=== PATIENT | male | born 1985 | race Caucasian/White ===

== ENCOUNTER 2024-06-21 11:10 | Emergency (ER) | payer OTHER ==
[2024-06-21] MEDS ORDERED: IBUPROFEN 400 MG TAB ONE (11:34)
[2024-06-21] MEDS ORDERED: LIDOCAINE 2% MPF 5 ML VIAL ONE ×2 (11:35→12:24)
[2024-06-21] MEDS ORDERED: HYDROCODONE/APAP 7.5/325 MG TAB ONE (11:35)
[2024-06-21] MEDS ORDERED: TDAP (DIPHTH,PERTUSS(ACELL),TET VAC) 0.5 ML VIAL IMVAC ONE (11:35)
--- NOTE | 2024-06-21 12:03 | RAD REPORT ---
EXAM DESCRIPTION: RAD - Foot Right 3 View - 06/21/2024 11:57 am CLINICAL HISTORY: laceration COMPARISON: <Comparisons> FINDINGS: No fracture, dislocation or soft tissue gas. Tiny linear radiopaque foreign body is seen a long the plantar forefoot tissues. Small calcaneal spur.
--- NOTE | 2024-06-21 12:56 | EDPHYS ---
Physician Documentation [facility] Name: Roberto Sims Age: 39 yrs Sex: Male : 1985 Arrival Date: 06/21/2024 Time: 11:10 Bed 7 Private MD: ED Physician Goldy Ruiz HPI: 06/21 11:30 This 39 yrs old Male presents to ER via Ambulatory with complaints of Fall Injury, cp Laceration To Leg. 11:30 The patient presents with an injury, a laceration. The complaints affect the right cp foot. Context: slipped in water on rocks while fishing [place]. Associated signs and symptoms: Pertinent positives: lacerations to left lower leg. Historical: - Allergies: 11:22 No Known Allergies; ll1 - PMHx: 11:22 None; ll1 - PSHx: 11:22 L hand and nasal surgery; ll1 - Immunization history:: Adult Immunizations up to date, Last tetanus immunization: unknown. - Social history:: Smoking status: Patient reports the use of cigarette tobacco products, smokes one-half pack cigarettes per day. ROS: 11:35 Constitutional: Negative for body aches, chills, fever, cp 11:35 Respiratory: Negative for cough, shortness of breath, wheezing, 11:35 Abdomen/GI: Negative for abdominal pain, vomiting, diarrhea, constipation, 11:35 Back: Negative for pain at rest, pain with movement, 11:35 MS/extremity: Positive for laceration, pain, of the right foot and left lower leg, 11:35 Neuro: Negative for altered mental status, dizziness, headache, weakness, 11:35 All other systems are negative, Exam: 11:40 Constitutional: The patient appears in no acute distress, alert, awake, non-toxic, well cp developed, well nourished, uncomfortable, 11:40 Head/Face: Normocephalic, atraumatic. cp 11:40 Eyes: Periorbital structures: appear normal, Conjunctiva: normal, no exudate, no cp injection, Lids and lashes: appear normal, bilaterally, 11:40 ENT: External ear(s): are unremarkable, Nose: is normal, Mouth: Lips: moist, Oral mucosa: moist, Posterior pharynx: Airway: no evidence of obstruction, patent, 11:40 Chest/axilla: Inspection: normal, 11:40 Cardiovascular: Rate: normal, 11:40 Respiratory: the patient does not display signs of respiratory distress, Respirations: normal, no use of accessory muscles, no retractions, 11:40 Back: pain, is absent, 11:40 Musculoskeletal/extremity: Extremities: grossly normal except: noted in the plantar side of right great toe: laceration, noted in the anterior left lower leg: laceration, ROM: full active range of motion, in the right foot and left knee, Perfusion: the extremity is normally perfused throughout, the right foot and left leg Sensation intact. 11:40 Neuro: Orientation: to person, place \T\ time. Mentation: is normal, Motor: moves all cp fours, Sensation: is normal, Vital Signs: 11:21 BP 144 / 108; Pulse 91; Resp 16; Temp 97.1; Pulse Ox 96% ; Weight 113.4 kg; Height 6 ll1 ft. 0 in. ; Pain 0/10; 12:20 BP 135 / 73; Pulse 84; Resp 18 S; Pulse Ox 98% ; aa5 11:21 Body Mass Index 33.91 (113.40 kg, 182.88 cm) ll1 11:21 Pain Scale: Adult ll1 Laceration: 12:55 Wound Repair of 3cm ( 1.2in ) subcutaneous laceration to plantar side of right great cp toe. Linear shaped.. Distal neuro/vascular/tendon intact. Anesthesia: Wound infiltrated with 5 mls of 2% lidocaine. Wound prep: Moderate cleansing by me, Wound irrigation by me. Skin closed with 1 3-0 Prolene using loose closure. Dressed with Bacitracin, 4x4's. Patient tolerated well. MDM: 11:16 Patient medically screened. cp 11:30 Differential diagnosis: fracture, foreign body, cellulitis. cp 12:55 Data reviewed: vital signs, nurses notes, radiologic studies, plain films, and as a cp result, I will discharge patient. 12:55 I considered the following discharge prescriptions or medication management in the emergency department Medications were administered in the Emergency Department. See MAR. Counseling: I had a detailed discussion with the patient and/or guardian regarding the historical points, exam findings, and any diagnostic results supporting the discharge/admit diagnosis, radiology results, the need for outpatient follow up, a general surgeon, to return to the emergency department if symptoms worsen or persist or if there are any questions or concerns that arise at home. Response to treatment: the patient's symptoms have markedly improved after treatment, and as a result, I will discharge patient. 06/21 11:25 Order name: XRAY Foot RIGHT 3 View; Complete Time: 12:50 cp 06/21 12:50 Order name: Wound dressing; Complete Time: 13:19 cp 06/21 12:57 Order name: Crutches; Complete Time: 13:40 cp 06/21 12:57 Order name: Post-op shoe; Complete Time: 13:40 cp Administered Medications: 11:41 Drug: Boostrix Tdap IM 0.5 ml IM once; as a single dose Route: IM; Site: right deltoid; aa5 12:20 Follow up: Response: No adverse reaction aa5 11:41 Drug: Ibuprofen PO 800 mg PO once Route: PO; aa5 12:20 Follow up: Response: No adverse reaction aa5 11:41 Drug: Hydrocodone-Acetaminophen PO (7.5 mg-325 mg) 1 tabs PO once; RASS on ADMIN: aa5 Combtv4, Very Agttd3, Agttd2, Rstlss1, AlertClm0, Drwsy-1, Lt Sdtn-2, Mod Sdtn-3, Dp Sdtn-4, UnArsble-5 Route: PO; 12:20 Follow up: Response: No adverse reaction aa5 12:45 Drug: Lidocaine Infiltration (2 %) 10 ml 5 ml Infiltration once; to bedside {Note: to aa5 right foot, administered by PA for laceration repair. .} Volume: 5 ml; Route: Infiltration; 13:00 Follow up: Response: No adverse reaction aa5 13:30 Drug: Doxycycline PO 200 mg PO once Route: PO; aa5 13:40 Follow up: Response: No adverse reaction; Medication administered at discharge. aa5 13:30 Drug: Ciprofloxacin PO 500 mg PO once Route: PO; aa5 13:40 Follow up: Response: No adverse reaction; Medication administered at discharge. aa5 Disposition Summary: 06/21/24 12:55 Discharge Ordered Notes: Location: Home cp Problem: new cp Symptoms: have improved cp Condition: Stable cp Diagnosis - Foot Laceration/ Open wound of foot - right cp Followup: cp - With: Pollo Cooper MD - When: 2 - 3 days - Reason: Wound Recheck Discharge Instructions: - Discharge Summary Sheet cp - Laceration Care, Adult cp - Nonsutured Laceration Care cp Forms: - Medication Reconciliation Form cp - Antibiotic Education cp - Prescription Opioid Use cp - Patient Portal Instructions cp - Leadership Thank You Letter cp Prescriptions: - Anaprox DS 550 mg Oral Tablet - take 1 tablet ORAL route every 12 hours As needed; 20 tablet; Refills: 0, cp Product Selection Permitted - Cipro 500 mg Oral tablet - take 1 tablet ORAL route every 12 hours for 10 days; 20 tablet; Refills: 0, cp Product Selection Permitted - Doxycycline Monohydrate 100 mg Oral Tablet - take 1 tablet ORAL route every 12 hours for 10 days; 20 tablet; Refills: 0, cp Product Selection Permitted Addendum: 07/02/2024 04:41 Co-signature as Attending Physician, Goldy Ruiz MD I agree with the assessment and c thayer plan of care. Signatures: Dispatcher [employer] EDGoldy Nieto MD MD cha Calderon, Audri, RN RN aa5 Goldy Nicolas PA PA Edison Lowe RN RN ll1 Corrections: (The following items were deleted from the chart) 06/22 12:34 12:30 MS/extremity: Positive for laceration, pain, of the right foot and left lower cp leg, cp 12:34 12:30 Constitutional: Negative for body aches, chills, fever, cp cp 12:34 12:30 Respiratory: Negative for cough, shortness of breath, wheezing, cp cp 12:34 12:30 Abdomen/GI: Negative for abdominal pain, vomiting, diarrhea, constipation, cp cp 12:34 12:30 Back: Negative for pain at rest, pain with movement, cp cp 12:34 12:30 Neuro: Negative for altered mental status, dizziness, headache, weakness, cp cp 12:34 12:30 All other systems are negative, cp cp 12:51 06/21 12:35 Wound Repair of 3cm ( 1.2in ) subcutaneous laceration to plantar side of cp right great toe. Linear shaped.. Distal neuro/vascular/tendon intact. Anesthesia: Wound infiltrated with 5 mls of 2% lidocaine. Wound prep: Moderate cleansing by me, Wound irrigation by me. Skin closed with 1 3-0 Prolene using loose closure. Dressed with Bacitracin, 4x4's. Patient tolerated well. cp
--- NOTE | 2024-06-21 12:56 | ER ---
Nurse's Notes [facility] Name: Roberto Sims Age: 39 yrs Sex: Male : 1985 Arrival Date: 06/21/2024 Time: 11:10 Bed 7 Private MD: Diagnosis: Foot Laceration/ Open wound of foot-right Presentation: 06/21 11:21 Chief complaint: Patient states: Slipped while [place] 20 min [employer]. Abrasions ll1 to L knee and R foot area. Minor abrasions B hands. No active bleeding. Needs tetanus. Coronavirus screen: Client denies travel out of the [place] in the last 14 days. At this time, the client does not indicate any symptoms associated with coronavirus-19. Ebola Screen: Patient denies travel to an Ebola-affected area in the 21 days before illness onset. Initial Sepsis Screen: Does the patient meet any 2 criteria? No. Patient's initial sepsis screen is negative. Does the patient have a suspected source of infection? No. Patient's initial sepsis screen is negative. Risk Assessment: Do you want to hurt yourself or someone else? Patient reports no desire to harm self or others. Onset of symptoms was June 21, 2024. 11:21 Method Of Arrival: Ambulatory ll1 11:21 Acuity: MONICA 4 ll1 Triage Assessment: 11:23 General: Appears in no apparent distress. Behavior is calm, cooperative, appropriate ll1 for age. Pain: Denies pain. Derm: Reports lacerations L knee and R foot. Injury Description: Abrasion. Historical: - Allergies: 11:22 No Known Allergies; ll1 - PMHx: 11:22 None; ll1 - PSHx: 11:22 L hand and nasal surgery; ll1 - Immunization history:: Adult Immunizations up to date, Last tetanus immunization: unknown. - Social history:: Smoking status: Patient reports the use of cigarette tobacco products, smokes one-half pack cigarettes per day. Screenin:30 [facility] ED Fall Risk Assessment (Adult) History of falling in the last 3 months, aa5 including since admission No falls in past 3 months (0 pts) Confusion or Disorientation No (0 pts) Intoxicated or Sedated No (0 pts) Impaired Gait No (0 pts) Mobility Assist Device Used No (0 pt) Altered Elimination No (0 pt) Score/Fall Risk Level 0 - 2 = Low Risk Oriented to surroundings, Maintained a safe environment, Educated pt \T\ family on fall prevention, incl call for assistance when getting out of bed. Abuse screen: Denies threats or abuse. Nutritional screening: No deficits noted. Tuberculosis screening: No symptoms or risk factors identified. Assessment: 11:29 General: Appears comfortable, Behavior is calm, cooperative. Pain: Complains of pain in aa5 right foot. Neuro: Level of Consciousness is awake, alert, obeys commands, Oriented to person, place, time, situation. Cardiovascular: Patient's skin is warm and dry. Respiratory: Airway is patent Respiratory effort is even, unlabored, Respiratory pattern is regular, symmetrical. GI: No signs and/or symptoms were reported involving the gastrointestinal system. : No signs and/or symptoms were reported regarding the genitourinary system. EENT: No signs and/or symptoms were reported regarding the EENT system. Derm: Skin is pink, warm \T\ dry. superficial lacerations noted to judy hands. feet, and left knee. Musculoskeletal: Range of motion: intact in all extremities. Injury Description: Laceration sustained to plantar aspect of base of right first toe is 0.5 to 2.5 cm long, not bleeding, no active bleeding noted at this time. 12:20 Reassessment: Patient is alert, oriented x 3, equal unlabored respirations, skin aa5 warm/dry/pink. 13:19 Reassessment: Cleaned all lacerations with Hibiclens and saline, dressed with aa5 Neosporin. Dressed right foot laceration with non-adherent dressing and Kerlix. Dressed left knee superficial laceration with Neosporin, non-adherent dressing and tape. . 13:40 Reassessment: Patient is alert, oriented x 3, equal unlabored respirations, skin aa5 warm/dry/pink. Vital Signs: 11:21 BP 144 / 108; Pulse 91; Resp 16; Temp 97.1; Pulse Ox 96% ; Weight 113.4 kg; Height 6 ll1 ft. 0 in. ; Pain 0/10; 12:20 BP 135 / 73; Pulse 84; Resp 18 S; Pulse Ox 98% ; aa5 11:21 Body Mass Index 33.91 (113.40 kg, 182.88 cm) ll1 11:21 Pain Scale: Adult ll1 ED Course: 11:12 Patient arrived in ED. mr 11:13 Arm band placed on Patient placed in an exam room, on a stretcher. ll1 11:16 Goldy Nicolas PA is PHCP. cp 11:16 Goldy Ruiz MD is Attending Physician. cp 11:22 Triage completed. ll1 11:23 Ifrah Vinson, RN is Primary Nurse. aa5 11:29 Patient has correct armband on for positive identification. Bed in low position. Call aa5 light in reach. Side rails up X 1. Pulse ox on. NIBP on. 11:58 XRAY Foot RIGHT 3 View In Process Unspecified. EDMS 12:57 Pollo Cooper MD is Referral Physician. cp 13:40 No provider procedures requiring assistance completed. Patient did not have IV access aa5 during this emergency room visit. 13:40 Ortho shoe applied to right foot. Crutches provided. aa5 Administered Medications: 11:41 Drug: Boostrix Tdap IM 0.5 ml IM once; as a single dose Route: IM; Site: right deltoid; aa5 12:20 Follow up: Response: No adverse reaction aa5 11:41 Drug: Ibuprofen PO 800 mg PO once Route: PO; aa5 12:20 Follow up: Response: No adverse reaction aa5 11:41 Drug: Hydrocodone-Acetaminophen PO (7.5 mg-325 mg) 1 tabs PO once; RASS on ADMIN: aa5 Combtv4, Very Agttd3, Agttd2, Rstlss1, AlertClm0, Drwsy-1, Lt Sdtn-2, Mod Sdtn-3, Dp Sdtn-4, UnArsble-5 Route: PO; 12:20 Follow up: Response: No adverse reaction aa5 12:45 Drug: Lidocaine Infiltration (2 %) 10 ml 5 ml Infiltration once; to bedside {Note: to aa5 right foot, administered by PA for laceration repair. .} Volume: 5 ml; Route: Infiltration; 13:00 Follow up: Response: No adverse reaction aa5 13:30 Drug: Doxycycline PO 200 mg PO once Route: PO; aa5 13:40 Follow up: Response: No adverse reaction; Medication administered at discharge. aa5 13:30 Drug: Ciprofloxacin PO 500 mg PO once Route: PO; aa5 13:40 Follow up: Response: No adverse reaction; Medication administered at discharge. aa5 Medication: 11:41 Vaccine Information Statement (VIS) provided today. Questions and/or concerns aa5 addressed. VIS edition date: June 03, 2021. Outcome: 12:55 Discharge ordered by . cp 13:40 Discharged to home ambulatory, with crutches, aa5 13:40 Condition: stable 13:40 Discharge instructions given to patient, Instructed on discharge instructions, follow up and referral plans. medication usage, Demonstrated understanding of instructions, follow-up care, medications, Prescriptions given X 3, 13:43 Patient left the ED. aa5 Signatures: Dispatcher [employer] EDMS SullivanKendra edwards, Bryan Reg mr Ifrah Vinson, RN RN aa5 Goldy Nicolas PA PA cp Lewis, Lynsay RN RN ll1 Corrections: (The following items were deleted from the chart) 13:40 11:29 Injury Description: Laceration sustained to plantar aspect of base of right first aa5 toe is 0.5 to 2.5 cm long, not bleeding, no active bleeding noted at this time. aa5 13:40 11:29 Derm: Skin is pink, warm \T\ dry. mild abrasions noted to judy hands aa5 aa5
[2024-06-21] MEDS ORDERED: DOXYCYCLINE 100 MG CAP PO ONE (13:25)
[2024-06-21] MEDS ORDERED: CIPROFLOXACIN HCL 500 MG TAB ONE (13:25)
[2024-06-21 14:08] VITALS: BP 144/108; TEMP 97.1; O2SAT 96
== END 2024-06-21 13:43 | disposition home or self-care (01) ==
LOC: ER 11:10
PROC: 0HQMXZZ Repair Right Foot Skin, External Approach (ICD-10-PCS; principal; 2024-06-21)
DX: S91.111A Laceration without foreign body of right great toe without damage to nail, initial encounter (principal); F17.210 Nicotine dependence, cigarettes, uncomplicated
CPT/HCPCS: 73630; 96372; 99284; 12002; J2001 ×2

== ENCOUNTER 2025-07-30 12:45 | Inpatient (IN) | payer OTHER, SELFPAY ==
--- NOTE | 2025-07-30 14:20 | RAD REPORT ---
EXAMINATION: ONE VIEW CHEST XR CLINICAL INDICATION: DYSPNEA TECHNIQUE: Frontal chest projection is submitted. Examination is limited by patient positioning and t echnique. COMPARISON: No prior exam. FINDINGS: The lungs are well inflated and clear. The heart is normal in size. No displaced fractures identified . IMPRESSION: No acute intrathoracic abnormalities.
--- NOTE | 2025-07-30 14:46 | RAD REPORT ---
EXAMINATION: CT ABDOMEN AND PELVIS WITH CONTRAST CLINICAL INDICATION: vomiting;Abd pain TECHNIQUE: CT abdomen and pelvis was performed, after the administration of IV contrast, as per [facility] protocol. Axial, sagittal and coronal reconstructions were obtained. One or more of the following dose reduction techniques were used: Automated exposure control, adjustment of the mA and k V according to patient size, and iterative reconstruction. Unless otherwise specified, incidental findings do not require dedicated imaging follow-up. COMPARISON: No prior exam. FINDINGS: LOWER CHEST: The visualized lung bases are clear. LIVER: Significant fatty liver with hepatomegaly present. No focal lesion or biliary dilitation. Cho lecystectomy clips. SPLEEN: Normal size. No focal lesion. PANCREAS: No mass, ductal dilation, or beatrice-pancreatic fluid. ADRENALS: Normal; no mass. KIDNEYS: Normal size and contour. No hydronephrosis. GASTROINTESTINAL TRACT: No evidence of free air, significant intra-abdominal free fluid, bowel obstru ction or abscess. Significant stool is seen throughout the colon. APPENDIX: Normal appendix. LYMPH NODES: No lymphadenopathy. MUSCULOSKELETAL: Mild multilevel spinal degenerative changes. ADDITIONAL FINDINGS: Small bilateral fat-containing inguinal hernias. IMPRESSION: No acute abnormalities seen in the abdomen or pelvis. Advanced fatty liver.
--- NOTE | 2025-07-30 14:49 | RAD REPORT ---
EXAM: CT CHEST WITH CONTRAST CLINICAL INDICATION: DYSPNEA TECHNIQUE: Routine CT scan of the chest with intravenous contrast. One or more of the following dose reduction techniques were used: Automated exposure control, adjustment of the mA and/or kV according to patient size, and/or iterative reconstruction. Unless otherwise specified, incidental fi ndings do not require dedicated imaging follow-up. COMPARISON: No prior exam. FINDINGS: LUNGS: Airways are clear. No evidence of airspace or interstitial process. No nodules. PLEURA: No pleural effusion. No pneumothorax. MEDIASTINUM AND LYMPH NODES: No mediastinal mass or fluid collection. Normal size mediastinal, hilar, and axillary lymph nodes. OSSEOUS STRUCTURES AND CHEST WALL: Intact. Bilateral gynecomastia. UPPER ABDOMEN: Advanced fatty liver. IMPRESSION: No acute or concerning intrathoracic findings.
[2025-07-30] MEDS ORDERED: ONDANSETRON 4 MG/2 ML VIAL ONE ×2 (14:58→15:23)
[2025-07-30] MEDS ORDERED: FAMOTIDINE 20 MG/2 ML VIAL IV ONE (14:58)
[2025-07-30] MEDS ORDERED: NA CHLORIDE 0.9% 1,000 ML ONE ×3 (14:58→17:17)
[2025-07-30 15:05] LABS: Absolute Lymphocytes (CBC) 2.5 K/uL (0.7-4.9); Hematocrit 49.9 % (39.6-49.0); Hemoglobin 16.6 g/dL (13.6-17.9); MCH 29.0 pg (27.0-35.0); MCHC 33.3 g/dL (32.0-36.0); MCV 87.2 fL (80-100); MPV 9.0 fL (7.6-11.3); Nucleated RBC Absolute Count 0.0 (0-0); Nucleated Red Blood Cells % 0.1 % (0-0); RBC Red Blood Cell Count 5.72 M/uL (4.33-5.43); White Blood Count 16.10 thou/uL (4.3-10.9)
[2025-07-30 15:44] LABS: ALT/SGPT 360 U/L (16-61); AST/SGOT 274 U/L (15-37); Albumin 4.5 g/dL (3.4-5.0); Albumin/Globulin Ratio 0.9 (1.1-1.8); Alkaline Phosphatase 136 U/L (45-117); Anion Gap 27.0 mEq/L (5.0-15.0); BUN Blood Urea Nitrogen 19 mg/dL (7-18); Globulin 5.1 g/dL (2.3-3.5); Lipase 96 U/L (13-75); NT PRO-BNP 48 pg/mL (<125); Potassium 5.0 mEq/L (3.5-5.1); Troponin High Sensitivity < 3.0 pg/mL (<58.9)
[2025-07-30 15:46] LABS: Glucose Level 491 mg/dL (74-106)
--- NOTE | 2025-07-30 15:57 | ER ---
Nurse's Notes [facility] Name: Roberto Sims Age: 40 yrs Sex: Male : 1985 Arrival Date: 07/30/2025 Time: 12:45 Bed 6 Private MD: Diagnosis: Other specified diabetes mellitus with ketoacidosis without coma;Dehydration;Muscle weakness (generalized) Presentation: 07/30 13:56 Chief complaint: Patient states: 1 WK VOMITING AND SOB, 2 WK BLURRY VISION. Coronavirus dd2 screen: At this time, the client does not indicate any symptoms associated with coronavirus-19. Ebola Screen: No symptoms or risks identified at this time. Initial Sepsis Screen: Does the patient meet any 2 criteria? No. Patient's initial sepsis screen is negative. Does the patient have a suspected source of infection? No. Patient's initial sepsis screen is negative. Risk Assessment: Do you want to hurt yourself or someone else? Patient reports no desire to harm self or others. Onset of symptoms is unknown. 13:56 Method Of Arrival: Ambulatory dd2 13:56 Acuity: MONICA 3 dd2 Triage Assessment: 13:57 General: Appears distressed, ill, Behavior is calm, cooperative, appropriate for age. dd2 Pain: Denies pain. EENT: No deficits noted. Neuro: Reports weakness GENERALIZED. Cardiovascular: Rhythm is sinus tachycardia. Respiratory: Reports shortness of breath. GI: Reports nausea, vomiting. : No signs and/or symptoms were reported regarding the genitourinary system. Derm: No deficits noted. Musculoskeletal: No deficits noted. Historical: - Allergies: 13:57 No Known Allergies; dd2 - PMHx: 15:20 None; mb9 - PSHx: 13:57 L hand and nasal surgery; dd2 - Immunization history:: Adult Immunizations up to date. - Infectious Disease History:: Denies. - Social history:: Smoking status: Patient reports the use of cigarette tobacco products, unknown amount. - Family history:: not pertinent. - Hospitalizations: : No recent hospitalization is reported. Screenin:00 [facility] ED Fall Risk Assessment (Adult) History of falling in the last 3 months, nh2 including since admission No falls in past 3 months (0 pts) Confusion or Disorientation No (0 pts) Intoxicated or Sedated No (0 pts) Impaired Gait Yes (1 pt) Mobility Assist Device Used No (0 pt) Altered Elimination No (0 pt) Score/Fall Risk Level 0 - 2 = Low Risk Oriented to surroundings, Maintained a safe environment, Educated pt \T\ family on fall prevention, incl call for assistance when getting out of bed, Assessed \T\ reinforced patient's understanding of fall precautions. Abuse screen: Denies threats or abuse. Denies injuries from another. Nutritional screening: No deficits noted. Tuberculosis screening: No symptoms or risk factors identified. Assessment: 15:00 General: Appears uncomfortable, Behavior is cooperative, appropriate for age, drowsy, nh2 Reports feeling ill for fatigue for 2 weeks. Pain: Complains of pain in epigastric area Pain does not radiate. Pain currently is 6 out of 10 on a pain scale. Quality of pain is described as aching, Pain began gradually, Is intermittent. Neuro: Level of Consciousness is awake, alert, obeys commands, Oriented to person, place, time, situation, Appropriate for age Reports weakness since 2 weeks ago Denies headache. Cardiovascular: Reports chest pain, Patient's skin is warm and dry. Rhythm is sinus rhythm. Respiratory: Reports shortness of breath on exertion Airway is patent Trachea midline Respiratory effort is even, unlabored, Respiratory pattern is regular, symmetrical, Breath sounds are clear bilaterally. GI: Abdomen is round obese, Reports constipation, nausea, vomiting. : No signs and/or symptoms were reported regarding the genitourinary system. Denies burning with urination. EENT: No signs and/or symptoms were reported regarding the EENT system. Derm: Skin is intact, Skin is pink, warm \T\ dry. Musculoskeletal: Circulation, motion, and sensation intact. Range of motion: intact in all extremities. 16:00 Reassessment: Patient and/or family updated on plan of care and expected duration. Pain nh2 level reassessed. Patient is alert, oriented x 3, equal unlabored respirations, skin warm/dry/pink. 16:50 Reassessment: Patient and/or family updated on plan of care and expected duration. Pain nh2 level reassessed. Patient is alert, oriented x 3, equal unlabored respirations, skin warm/dry/pink. . 17:50 Reassessment: Patient and/or family updated on plan of care and expected duration. Pain nh2 level reassessed. Patient is alert, oriented x 3, equal unlabored respirations, skin warm/dry/pink. Patient denies pain at this time. 18:50 Reassessment: Patient and/or family updated on plan of care and expected duration. Pain nh2 level reassessed. Patient is alert, oriented x 3, equal unlabored respirations, skin warm/dry/pink. 19:20 General: attempted to call report. nurse not available . lg3 Vital Signs: 13:56 BP 155 / 94; Pulse 113; Resp 18; Temp 98.7; Pulse Ox 99% ; dd2 15:30 BP 158 / 92; Pulse 102; Resp 20; Temp 97.4; Pulse Ox 100% on R/A; nh2 16:28 Weight 114 kg (M); mb9 16:30 BP 159 / 96; Pulse 98; Resp 18; Pulse Ox 100% on R/A; nh2 17:30 BP 167 / 96; Pulse 102; Resp 17; Pulse Ox 100% ; nh2 18:30 BP 170 / 96; Pulse 101; Resp 18; Pulse Ox 100% ; nh2 20:05 BP 151 / 89; Pulse 104; Resp 18 S; Pulse Ox 99% on R/A; lg3 ED Course: 12:50 Patient arrived in ED. im 12:57 Wilder Bone MD is Attending Physician. rn 13:57 Triage completed. dd2 13:57 Arm band placed on. dd2 14:14 XRAY Chest (1 view) In Process Unspecified. EDMS 14:31 CT completed. Patient tolerated procedure well. Note: 20 g to rt ac and labs collected sj and sent by Kaye in CT.. Patient moved to CT via wheelchair. 14:33 CT Abd/Pelvis - IV Contrast Only In Process Unspecified. EDMS 14:33 CT Chest W/ Con In Process Unspecified. EDMS 14:57 Galdino Mora Jr, RN is Primary Nurse. nh2 15:00 Patient has correct armband on for positive identification. Bed in low position. Call nh2 light in reach. Side rails up X 1. Provided Education on: using call light for assistance. 15:00 Inserted saline lock: 20 gauge in right antecubital area, using aseptic technique. nh2 Blood collected. Flushed with 10 mL NS. 15:46 Notified ED physician of a critical lab result(s). CO2 8 and Glucose 491. mb9 15:56 Ping Kenny MD is Hospitalizing Provider. rn 17:13 VBG Sent. nh2 19:06 Report given to SILKE Laguna. nh2 20:38 No provider procedures requiring assistance completed. Patient admitted, IV remains in lg3 place. Administered Medications: 15:15 Drug: Famotidine IVP 20 mg IVP once; dilute with 10 mL 0.9% NaCl; give over 2 minutes nh2 Route: IVP; Site: right antecubital; 15:45 Follow up: Response: No adverse reaction nh2 15:15 Drug: NS 0.9% IV 1000 ml IV at 1 bolus Per protocol; to be given as a bolus over 60 nh2 minutes Route: IV; Rate: 1 bolus; Site: right antecubital; 16:57 Follow up: IV Status: Completed infusion; IV Intake: 1000ml nh2 15:20 Drug: Ondansetron IVP 4 mg IVP once; over 2 minutes Route: IVP; Site: right antecubital;nh2 15:45 Follow up: Response: No adverse reaction; Nausea is decreased nh2 16:09 Drug: NS 0.9% IV 1000 ml IV at 1000 ml once; to be given as a bolus over 60 minutes nh2 Route: IV; Rate: 1000 ml; Site: right antecubital; 17:12 Follow up: IV Status: Completed infusion; IV Intake: 1000ml nh2 16:09 Drug: Sodium Bicarbonate IVP 1 amp IVP once; (50 mL); equals 50 mEq Route: IVP; Site: nh2 right antecubital; 16:57 Follow up: Response: No adverse reaction nh2 16:36 Drug: Insulin Drip - (Insulin Regular Human IVP 100 units, NS 0.9% IV 100 ml) IV at nh2 calculated rate continuous; Standard concentration 1unit/ml; Dose for DKA is 0.1 units/kg/hr {Co-Signature: aa5 (Ifrah Vinson RN).} {Note: started at 11units/hr per MD .} Route: IV; Rate: calculated rate; Site: right hand; 20:39 Follow up: IV Status: Infusion continued upon admission lg3 Medication: 15:19 VIS not applicable for this client. nh2 Intake: 16:57 IV: 1000ml; Total: 1000ml. nh2 17:12 IV: 1000ml; Total: 2000ml. nh2 Outcome: 15:56 Decision to Hospitalize by Provider. rn 20:38 Admitted to ICU accompanied by nurse, via stretcher, room 8, Report called to Flaca lg3 20:38 Condition: stable 20:38 Instructed on the need for admit, 20:38 Patient left the ED. lg3 Signatures: Dispatcher [employer] Kaye Trevino Roman, MD MD rn Able, Lacie, RN RN lg3 Kendra Lott RN RN mb9 Kathya Shelby DIANA RN RN dd2 Galdino Mora Jr, RN RN nh2 Ifrah Vinson RN aa5 Corrections: (The following items were deleted from the chart) 16:42 16:41 Insulin Drip - (Insulin Regular Human IVP 100 units, NS 0.9% IV 100 ml) IV at nh2 calculated rate in right hand; started at 11units/hr per MD nh2
--- NOTE | 2025-07-30 15:57 | EDPHYS ---
Physician Documentation [facility] Name: Roberto Sims Age: 40 yrs Sex: Male : 1985 Arrival Date: 07/30/2025 Time: 12:45 Bed 6 Private MD: ED Physician Wilder Bone HPI: 07/30 15:26 This 40 yrs old Male presents to ER via Ambulatory with complaints of General Weakness, rn Vomiting, Blurred Vision. 15:26 The patient presents to the emergency department with nausea, vomiting, abdominal pain. rn Onset: The symptoms/episode began/occurred 2 week(s) ago. Patient reports 2 weeks of not feeling well with nausea vomiting and abdominal pain. Reports constipation. Patient denies fever but reports subjective chills. No cough or hemoptysis. Does report some shortness of breath over the last few days. Has had anxiety before but reports dyspnea lately.. Historical: - Allergies: 13:57 No Known Allergies; dd2 - PMHx: 15:20 None; mb9 - PSHx: 13:57 L hand and nasal surgery; dd2 - Immunization history:: Adult Immunizations up to date. - Infectious Disease History:: Denies. - Social history:: Smoking status: Patient reports the use of cigarette tobacco products, unknown amount. - Family history:: not pertinent. - Hospitalizations: : No recent hospitalization is reported. ROS: 15:26 Constitutional: Negative for fever, chills, and weight loss, Cardiovascular: Negative rn for chest pain, palpitations, and edema, Respiratory: Negative for cough, positive for shortness of breath Abdomen/GI: Positive for abdominal pain with nausea and vomiting and constipation MS/Extremity: Negative for injury and deformity, Skin: Negative for injury, rash, and discoloration, Neuro: Positive for generalized weakness Exam: 15:26 Constitutional: This is a well developed, well nourished patient who is awake, alert, safety intern without assistance to triage but appears very anxious and hyperventilating Head/Face: Normocephalic, atraumatic. Eyes: Normal conjunctiva Cardiovascular: Tachycardic, regular.No pulse deficits. Respiratory: Mild tachypnea, appears anxious Abdomen/GI: Soft, nontender MS/ Extremity: Pulses equal, no cyanosis. Neurovascular intact. Full, normal range of motion. Equal circumference. Neuro: Awake and alert, GCS 15 Vital Signs: 13:56 BP 155 / 94; Pulse 113; Resp 18; Temp 98.7; Pulse Ox 99% ; dd2 15:30 BP 158 / 92; Pulse 102; Resp 20; Temp 97.4; Pulse Ox 100% on R/A; nh2 16:28 Weight 114 kg (M); mb9 16:30 BP 159 / 96; Pulse 98; Resp 18; Pulse Ox 100% on R/A; nh2 17:30 BP 167 / 96; Pulse 102; Resp 17; Pulse Ox 100% ; nh2 18:30 BP 170 / 96; Pulse 101; Resp 18; Pulse Ox 100% ; nh2 20:05 BP 151 / 89; Pulse 104; Resp 18 S; Pulse Ox 99% on R/A; lg3 MDM: 12:57 Medical Screening Exam initiated rn 15:54 Differential diagnosis: Nonspecific abd pain, viral gastroenteritis, gastroenteritis, rn DKA, new onset diabetes. Data reviewed: vital signs, nurses notes, lab test result(s), EKG, radiologic studies, CT scan, plain films, and as a result, I will admit patient. Consideration of Admission/Observation Patient was admitted/placed on observation. Escalation of care including admission/observation considered. Independent interpretation of the following test(s) in the Emergency Department X-Ray: My interpretation is Chest x-ray images negative for pneumonia per my interpretation. automobile service station attendant: rate is 102 beats/min, Rhythm is sinus tachycardia, with no ectopy, Interpretation: tachycardia. Counseling: I had a detailed discussion with the patient and/or guardian regarding the historical points, exam findings, and any diagnostic results supporting the discharge/admit diagnosis, lab results, radiology results, the need for further work-up and treatment in the hospital. Response to treatment: the patient's symptoms have mildly improved after treatment, and as a result, I will admit patient. ED course: Patient with DKA, this will be new onset diabetes and/or new diagnosis of diabetes. Bicarbonate. CT imaging negative for other acute pathology. Started insulin drip and will admit to ICU under hospitalist care. 07/30 14:00 Order name: CBC with Diff; Complete Time: 15:46 rn 07/30 14:00 Order name: CMP; Complete Time: 15:47 rn 07/30 14:00 Order name: Lipase; Complete Time: 15:47 rn 07/30 14:01 Order name: Troponin High Sensitivity; Complete Time: 15:47 rn 07/30 14:01 Order name: BNP; Complete Time: 15:47 rn 07/30 14:59 Order name: CREATININE WHOLE BLOOD; Complete Time: 15:46 EDMS 07/30 15:59 Order name: VBG la1 07/30 16:18 Order name: Lactate w/ 2H reflex if indic. EDMS 07/30 16:18 Order name: Triglycerides Level EDMS 07/30 16:18 Order name: UA W/Microscopic EDMS 07/30 16:18 Order name: Basic Metabolic Panel EDMS 07/30 16:20 Order name: Basic Metabolic Panel EDMS 07/30 16:20 Order name: Basic Metabolic Panel EDMS 07/30 16:20 Order name: Basic Metabolic Panel EDMS 07/30 16:20 Order name: Basic Metabolic Panel EDMS 07/30 16:20 Order name: Calcium Level EDMS 07/30 16:20 Order name: Calcium Level EDMS 07/30 16:20 Order name: Calcium Level EDMS 07/30 16:20 Order name: Calcium Level EDMS 07/30 16:20 Order name: CBC with Automated Diff EDMS 07/30 16:20 Order name: CBC with Automated Diff EDMS 07/30 16:20 Order name: CBC with Automated Diff EDMS 07/30 16:20 Order name: CBC with Automated Diff EDMS 07/30 16:20 Order name: Lipid Profile EDMS 07/30 16:20 Order name: Lipid Profile EDMS 07/30 16:20 Order name: Magnesium EDMS 07/30 16:20 Order name: Magnesium EDMS 07/30 16:20 Order name: Magnesium EDMS 07/30 16:20 Order name: Magnesium EDMS 07/30 16:21 Order name: Glucose rk3 07/30 16:30 Order name: Glucose, Ancillary Testing EDMS 07/30 17:20 Order name: Glucose, Ancillary Testing EDMS 07/30 17:59 Order name: Glucose, Ancillary Testing EDMS 07/30 18:25 Order name: Glucose, Ancillary Testing EDMS 07/30 18:55 Order name: Glucose, Ancillary Testing EDMS 07/30 19:59 Order name: Glucose, Ancillary Testing EDMS 07/30 14:00 Order name: CT Abd/Pelvis - IV Contrast Only; Complete Time: 14:56 rn 10/02 14:01 Order name: XRAY Chest (1 view); Complete Time: 14:56 rn 07/30 14:01 Order name: CT Chest W/ Con; Complete Time: 14:56 rn 07/30 14:00 Order name: IV Saline Lock; Complete Time: 15:15 rn 07/30 14:00 Order name: Labs collected and sent; Complete Time: 15:15 rn Administered Medications: 15:15 Drug: Famotidine IVP 20 mg IVP once; dilute with 10 mL 0.9% NaCl; give over 2 minutes nh2 Route: IVP; Site: right antecubital; 15:45 Follow up: Response: No adverse reaction nh2 15:15 Drug: NS 0.9% IV 1000 ml IV at 1 bolus Per protocol; to be given as a bolus over 60 nh2 minutes Route: IV; Rate: 1 bolus; Site: right antecubital; 16:57 Follow up: IV Status: Completed infusion; IV Intake: 1000ml nh2 15:20 Drug: Ondansetron IVP 4 mg IVP once; over 2 minutes Route: IVP; Site: right antecubital;nh2 15:45 Follow up: Response: No adverse reaction; Nausea is decreased nh2 16:09 Drug: NS 0.9% IV 1000 ml IV at 1000 ml once; to be given as a bolus over 60 minutes nh2 Route: IV; Rate: 1000 ml; Site: right antecubital; 17:12 Follow up: IV Status: Completed infusion; IV Intake: 1000ml nh2 16:09 Drug: Sodium Bicarbonate IVP 1 amp IVP once; (50 mL); equals 50 mEq Route: IVP; Site: nh2 right antecubital; 16:57 Follow up: Response: No adverse reaction nh2 16:36 Drug: Insulin Drip - (Insulin Regular Human IVP 100 units, NS 0.9% IV 100 ml) IV at nh2 calculated rate continuous; Standard concentration 1unit/ml; Dose for DKA is 0.1 units/kg/hr {Co-Signature: aa5 (Ifrah Vinson RN).} {Note: started at 11units/hr per MD .} Route: IV; Rate: calculated rate; Site: right hand; 20:39 Follow up: IV Status: Infusion continued upon admission lg3 Disposition Summary: 07/30/25 15:56 Hospitalization Ordered Notes: Hospitalization Status: Inpatient Admission rn Provider: Ping Kenny rn Location: Intensive Care Unit rn Condition: Stable rn Problem: new rn Symptoms: have improved rn Bed/Room Type: Standard rn Room Assignment: 8-(07/30/25 19:08) catina Diagnosis - Other specified diabetes mellitus with ketoacidosis without coma rn - Dehydration rn - Muscle weakness (generalized) rn Forms: - Medication Reconciliation Form rn - SBAR form rn - Leadership Thank You Letter marketing pr intern time excluding procedures: 15:54 Critical care time: Bedside Care: 35 minutes. Total time: 35 minutes rn Signatures: Dispatcher [employer] EDMS Danette Emmanuel RN Wilder Sheldon MD MD rn Wilkerson, Kendra Lucero, RN RN mb9 GREGORY CARL RN RN dd2 Galdino Mora Jr RN RN nh2 Luz Elena Escoto RN lg3 Ifrah Vinson RN aa5 Corrections: (The following items were deleted from the chart) 14:01 14:01 Abdomen Pelvis W Con+CT.RAD.BRZ ordered. EDMS EDMS 14:01 14:01 Thorax W/ Con+CT.RAD.BRZ ordered. EDMS EDMS 14:02 14:02 Troponin High Sensitivity+C.LAB.BRZ ordered. EDMS EDMS 14:02 14:02 PROBNP+C.LAB.BRZ ordered. EDMS EDMS 19:08 15:56 nanette dominique
[2025-07-30] MEDS ORDERED: D50W 25 GM/50 ML SYRINGE IV PRN (16:03)
[2025-07-30] MEDS ORDERED: GLUCAGON 1 MG/VIAL IM PRN (16:03)
[2025-07-30] MEDS ORDERED: ONDANSETRON 4 MG/2 ML VIAL IV PRN (16:16)
--- NOTE | 2025-07-30 16:25 | P.HP ---
Certification for Inpatient Patient admitted to: Inpatient With expected LOS: >2 Midnights Patient will require the following post-hospital care: None Practitioner: I am a practitioner with admitting privileges, knowledge of patient current condition, hospital course, and medical plan of care. Services: Services provided to patient in accordance with Admission requirements found in Title 42 Section 412.3 of the Code of Federal Regulations Patient History Date of Service: 07/30/25 Reason for admission: Diabetic ketoacidosis History of Present Illness: Patient is a 50-year-old gentleman with a history of diabetes been feeling poorly for the last 2 weeks. He was having abdominal pain and blurred vision and having nausea and vomiting. Patient decided to come into the emergency room for further evaluation after 2 weeks of struggling to feel better. In the emergency room patient had extensive workup done which revealed patient had diabetic ketoacidosis. However, we do not have a urine ketone at this time and we will have lactic acid levels. These will be ordered. Patient is ALT and AST are elevated. Will check a CPK level as well. At this time, patient will be admitted to the hospital for further workup. Allergies No Known Allergies Allergy (Unverified 07/30/25 16:02) - Past Medical/Surgical History -: Diabetes -: Hand surgery -: Nasal surgery - Family History Father Family History: Reviewed- Non-Contributory - Social History Smoking Status: Former smoker Alcohol use: No CD- Drugs: No Review of Systems 10-point ROS is otherwise unremarkable Physical Examination - Physical Exam General: Alert, In no apparent distress, Oriented x3 HEENT: Atraumatic, PERRLA, Mucous membr. moist/pink, EOMI, Sclerae nonicteric Neck: Supple, 2+ carotid pulse no bruit, No LAD, Without JVD or thyroid abnormality Respiratory: Clear to auscultation bilaterally, Normal air movement Cardiovascular: Regular rate/rhythm, Normal S1 S2 Gastrointestinal: Normal bowel sounds, No tenderness Musculoskeletal: No tenderness Integumentary: No rashes Neurological: Normal gait, Normal speech, Normal strength at 5/5 x4 extr, Normal tone, Normal affect Lymphatics: No axilla or inguinal lymphadenopathy - Studies Laboratory Data (last 24 hrs) 07/30/25 07/30/25 14:25 14:25 WBC 16.10 H Hgb 16.6 Hct 49.9 H Plt Count 388 Sodium 126 L Potassium 5.0 BUN 19 H Creatinine 1.99 H Glucose 491 H* Total Bilirubin 0.6 AST 274 H ALT 360 H Alkaline Phosphatase 136 H Lipase 96 H Assessment & Plan - Problems (Diagnosis) (1) Diabetic ketoacidosis Current Visit: Yes Status: Acute - Plan 1. Continue with insulin drip 2. Continue with aggressive IV hydration 3. Monitor hemoglobin A1c 4. Blood sugars every hour 5. Check BMP every 6 hours 6. Hand Violin Maker regarding blood sugars 7. Repeat acetone level in a.m. 8. GI DVT prophylaxis - Advance Directives Does patient have a Living Will: No Does patient have a Durable POA for Healthcare: No
[2025-07-30] MEDS ORDERED: NA CHLORIDE 0.9% 1,000 ML IV SCH (17:00)
[2025-07-30 17:07] LABS: Anion Gap 23.7 mEq/L (5.0-15.0); BUN Blood Urea Nitrogen 19 mg/dL (7-18); Potassium 4.7 mEq/L (3.5-5.1)
[2025-07-30 17:08] LABS: Glucose Level 559 mg/dL (74-106)
[2025-07-30 17:20] LABS: HCO3, Venous Blood Gas 6.7 mmol/L (21.0-29.0); PCO2, Venous Blood Gas 26 mmHg (41-51); PO2, Venous Blood Gas 54 mmHg (25-40)
[2025-07-30 17:21] LABS: Base Excess, VBG -24.3 mmol/L (-2.0-3.0)
[2025-07-30 17:22] LABS: O2 Saturation, VBG 67.5 % (40.0-70.0)
[2025-07-30 17:24] LABS: PH, Venous Blood Gas 7.02 (7.32-7.42)
[2025-07-30] MEDS: INSULIN REGULAR, HUMAN 100 UNIT in NA CHLORIDE 0.9% 100 ML IV SCH (20:20)
[2025-07-30 21:06] VITALS: BMI 33.5
[2025-07-30 21:31] VITALS: O2SAT 99
[2025-07-30 21:53] LABS: Anion Gap 18.8 mEq/L (5.0-15.0); BUN Blood Urea Nitrogen 15.0 mg/dL (7-18); Glucose Level 224.0 mg/dL (74-106); Potassium 3.8 mEq/L (3.5-5.1)
[2025-07-30] MEDS: D5.45NS W/KCL 20MEQ 1,000 ML IV SCH (21:59)
[2025-07-31 00:50] LABS: Anion Gap 15.9 mEq/L (5.0-15.0); BUN Blood Urea Nitrogen 15.0 mg/dL (7-18); Glucose Level 222.0 mg/dL (74-106); Potassium 3.9 mEq/L (3.5-5.1)
[2025-07-31 01:11] VITALS: TEMP 98.2
[2025-07-31] MEDS: D5.45NS W/KCL 20MEQ 20 MEQ/1,000 ML BAG IV SCH (05:00)
[2025-07-31] MEDS: ACETAMINOPHEN 325 MG TABLET PO PRN (05:20)
[2025-07-31 05:21] LABS: Absolute Lymphocytes (CBC) 2.4 K/uL (0.7-4.9); Hematocrit 38.5 % (39.6-49.0); Hemoglobin 13.5 g/dL (13.6-17.9); MCH 29.9 pg (27.0-35.0); MCHC 34.9 g/dL (32.0-36.0); MCV 85.5 fL (80-100); MPV 8.2 fL (7.6-11.3); Nucleated RBC Absolute Count 0.0 (0-0); Nucleated Red Blood Cells % 0.0 % (0-0); RBC Red Blood Cell Count 4.50 M/uL (4.33-5.43); White Blood Count 9.30 thou/uL (4.3-10.9)
[2025-07-31 05:37] LABS: HDL Cholesterol 28.0 mg/dL (40-60); LDL Cholesterol, Calculated 134.0 mg/dL (<130); LDL Cholesterol,Calc NonReport 134.0; Magnesium 2.1 mg/dL (1.6-2.4)
[2025-07-31 08:22] LABS: Anion Gap 14.9 mEq/L (5.0-15.0); BUN Blood Urea Nitrogen 11.0 mg/dL (7-18); Glucose Level 217.0 mg/dL (74-106); Potassium 3.9 mEq/L (3.5-5.1)
[2025-07-31] MEDS: ENOXAPARIN 40 MG/0.4 ML SQ SCH (08:38)
[2025-07-31] MEDS: D5W 1,000 ML IV SCH (11:58)
[2025-07-31 11:59] LABS: Anion Gap 11.7 mEq/L (5.0-15.0); BUN Blood Urea Nitrogen 11.0 mg/dL (7-18); Glucose Level 177.0 mg/dL (74-106); Potassium 3.7 mEq/L (3.5-5.1)
[2025-07-31] MEDS: INSULIN GLARGINE 100 UNIT/ML SQ ONE (13:17)
[2025-07-31] MEDS ORDERED: D10W 125 ML IV PRN (16:09)
[2025-07-31] MEDS ORDERED: GLUCAGON 1 MG/VIAL IM PRN (16:09)
[2025-07-31] MEDS ORDERED: INSULIN REGULAR (HUMAN) 100 UNIT/ML SQ SCH (16:30)
[2025-07-31] MEDS: INSULIN REGULAR (HUMAN) 100 UNIT/ML SQ SCH (17:13)
[2025-07-31 18:28] VITALS: BP 142/84
== END 2025-07-31 18:24 | disposition home or self-care (01) | DRG 639 ==
LOC: ER 12:45 → ERHOLD 16:16 → 3RD-ICU 19:34
PROVIDERS: ADMIT Hospitalist; ATTEND Hospitalist
DX: E11.10 Type 2 diabetes mellitus with ketoacidosis without coma (principal); E86.0 Dehydration; K59.00 Constipation, unspecified; F17.210 Nicotine dependence, cigarettes, uncomplicated
CPT/HCPCS: 36415; 71045; 71260; 74177; 80048; 80053; 80061; 82310; 82565; 82803; 82947; 83605; 83690; 83735; 83880; 84478; 84484; 85025; 93005; 96361; 96365; 96366; 96375; 99285; J1650; J1815; J2405; J7030; Q9967